=== PATIENT | male | born 1980 | race Caucasian/White ===

== ENCOUNTER 2022-08-28 10:28 | Emergency (ER) | payer OTHER ==
[2022-08-28] MEDS ORDERED: INSU100V2 SQ (10:37)
[2022-08-28] MEDS ORDERED: ATOR40TA75 PO (10:37)
[2022-08-28] MEDS ORDERED: BASA100I SC (10:37)
[2022-08-28 11:16] LABS: BASO # 0.1 10^3/uL (0.0-0.2); BASO % 1.9 % (0.0-1.0); EOS # 0.2 10^3/uL (0.0-0.5); EOS % 3.5 % (0.0-3.0); HEMATOCRIT 47.5 % (42.0-52.0); HEMOGLOBIN 16.2 g/dl (13.5-17.5); LYMPH # 1.4 10^3/uL (1.5-5.0); LYMPH % 23.6 % (24.0-44.0); MEAN CORPUSCULAR HEMOGLOBIN 31.6 pg (27.0-33.0); MEAN CORPUSCULAR HGB CONC 34.1 g/dl (32.0-36.5); MEAN CORPUSCULAR VOLUME 92.8 fl (80.0-96.0); MONO # 0.4 10^3/uL (0.0-0.8); MONO % 7.1 % (2.0-8.0); NEUTROPHILS # 3.7 10^3/uL (1.5-8.5); NEUTROPHILS % 62.7 % (36.0-66.0); PLATELET COUNT, AUTOMATED 228 10^3/uL (150-450); RED BLOOD COUNT 5.12 10^6/uL (4.30-6.10); WHITE BLOOD COUNT 5.9 10^3/uL (4.0-10.0)
[2022-08-28 11:53] LABS: ALBUMIN 4.6 GM/DL (3.2-5.2); ALT/SGPT 30 U/L (12-78); BILIRUBIN,DIRECT 0.5 MG/DL (0.0-0.2); BILIRUBIN,TOTAL 1.8 MG/DL (0.2-1.0); BLOOD UREA NITROGEN 12 MG/DL (7-18); CALCIUM LEVEL 9.4 MG/DL (8.5-10.1); CARBON DIOXIDE LEVEL 28 MEQ/L (21-32); CHLORIDE LEVEL 104 MEQ/L (98-107); CREATININE FOR GFR 1.15 MG/DL (0.70-1.30); GLOMERULAR FILTRATION RATE > 60.0 (>60); GLUCOSE, FASTING 93 MG/DL (70-100); LIPASE 96 U/L (73-393); POTASSIUM SERUM 4.3 MEQ/L (3.5-5.1); SODIUM LEVEL 138 MEQ/L (136-145); TOTAL PROTEIN 7.4 GM/DL (6.4-8.2)
[2022-08-28] MEDS ORDERED: KETOROLAC TROMETHAMINE 10 MG TAB PO ONE (12:20)
[2022-08-28] MEDS ORDERED: KETOROLAC 30 MG/ML 1ML VIAL IV ONE (12:20)
[2022-08-28] MEDS ORDERED: ISOVUE-370 76% 100ML VIAL As Ordered ONE (13:01)
[2022-08-28 14:23] VITALS: BP 150/93
== END 2022-08-28 14:25 | disposition home or self-care (01) ==
LOC: EDBD 10:28 → M ED 10:28
DX: R17 Unspecified jaundice (principal); R10.31 Right lower quadrant pain; E11.9 Type 2 diabetes mellitus without complications; E78.5 Hyperlipidemia, unspecified; Z79.4 Long term (current) use of insulin
CPT/HCPCS: 36415; 74177; 76857; 80048; 80076; 81002; 83690; 85025; 99284; Q9967

== ENCOUNTER → 2023-02-21 | Outpatient (CLI) | payer OTHER ==
[~2023-02-21] MED LIST: ATOR40TA75 PO; BASA100I SC; INSU100V2 SQ
== END ==
LOC: M LABSMTC 07:59
PROVIDERS: ATTEND Anesthesiology
DX: Z01.812 Encounter for preprocedural laboratory examination (principal); Z20.822 Contact with and (suspected) exposure to COVID-19

== ENCOUNTER 2023-02-24 06:49 | Day surgery (SDC) | payer OTHER ==
[~2023-02-24] VITALS: Ht 188 cm; Wt 100.2 kg
[~2023-02-24 06:49] MED LIST changes: +NS 1,000 ML IV ONE
[2023-02-24 08:25] VITALS: BP 120/67
[2023-02-24] MEDS ORDERED: propofoL 200 MG/20 ML VIAL As Ordered ONE (08:56)
[2023-02-24] MEDS ORDERED: LIDOCAINE 2% MDV 20ML VIAL As Ordered ONE (08:56)
== END 2023-02-24 08:30 | disposition home or self-care (01) ==
LOC: M OPP 06:49
PROVIDERS: ATTEND Internal Medicine Gastroenterology
DX: R10.31 Right lower quadrant pain (principal); E78.00 Pure hypercholesterolemia, unspecified; E10.9 Type 1 diabetes mellitus without complications; Z79.02 Long term (current) use of antithrombotics/antiplatelets; Z79.4 Long term (current) use of insulin

== ENCOUNTER → 2023-07-07 | Outpatient (CLI) | payer OTHER ==
[~2023-07-07] MED LIST changes: -INSU100V2 SQ; +INSU100V6 SQ; -NS 1,000 ML IV ONE
== END ==
LOC: M RAD 08:07
PROVIDERS: ATTEND Registered Nurse
DX: R10.813 Right lower quadrant abdominal tenderness (principal); R16.0 Hepatomegaly, not elsewhere classified